=== PATIENT | female | born 1950 | race Hispanic/Latino ===

== ENCOUNTER 2020-03-29 07:40 | Observation (INO) | payer MEDICARE ==
[2020-03-24 09:08] LABS: BASOPHILS % 0.3 % (0.0-1.0); EOSINOPHILS # (AUTO) 0.1 (0.0-0.4); EOSINOPHILS % 0.8 % (0.0-6.0); HEMATOCRIT 36.7 % (34.2-44.1); HEMOGLOBIN 12.3 g/dL (12.0-16.0); LYMPHOCYTES # (AUTO) 2.6 (1.0-3.2); LYMPHOCYTES % 21.7 % (18.0-39.1); MEAN CORPUSCULAR HEMOGLOBIN 29.4 pg (28-32); MEAN CORPUSCULAR HGB CONC 33.5 g/dL (31-35); MEAN CORPUSCULAR VOLUME 87.6 fL (81-99); MONOCYTES # (AUTO) 0.6 (0.2-0.8); NEUTROPHILS # (AUTO) 8.7 (2.1-6.9); PLATELET COUNT 202 x10e3/uL (140-360); RED BLOOD COUNT 4.19 x10e6/uL (3.6-5.1); RED CELL DISTRIBUTION WIDTH 12.5 % (11.7-14.4)
[2020-03-24 09:32] LABS: ANION GAP 11.6 mmol/L (8-16); BLOOD UREA NITROGEN 17 mg/dL (7-26); BUN/CREATININE RATIO 24 (6-25); CALCIUM 9.1 mg/dL (8.4-10.2); CARBON DIOXIDE 29 mmol/L (22-29); CHLORIDE 104 mmol/L (98-107); CREATININE, SERUM 0.71 mg/dL (0.57-1.11); EST GLOMERULAR FILTRATION RATE > 60 ML/MIN (60-); GLUCOSE 141 mg/dL (74-118); POTASSIUM 3.6 mmol/L (3.5-5.1); SODIUM 141 mmol/L (136-145)
[~2020-03-29 07:40] MED LIST: ALBUTEROL INH; AMLODIPINE BESYL5 MG PO; HYDROCHLOROTHIA25 MG PO; INHALER INH; LIPITOR10 MG PO; LISINOPRIL10 MG PO; LOSARTAN POTAS100 MG PO; METFORMIN HCL500 MG PO; METOPROLOL SUCC50 MG PO; MOBIC7.5 MG PO; MONTELUKAST SOD10 MG PO; ROPIVACAINE 246.25 MG, EPINEPHRINE HCL 1:1000 1ML 0.5 MG, CLONIDINE HCL 0.08 MG, KETORO... INJ ONE; Z.0.LISINOPRIL10 MG PO; Z.0.VENTOLIN HFA18 G IH; [UNRECOGNIZED DRUG - OTHER] PO
[2020-03-29] MEDS ORDERED: ROPIVACAINE 246.25 MG, EPINEPHRINE HCL 1:1000 1ML 0.5 MG, CLONIDINE HCL 0.08 MG, KETORO... INJ ONE ×5 (08:00)
[2020-03-29] MEDS ORDERED: SUCRALFATE1 GM PO (08:41)
[2020-03-29] MEDS ORDERED: CEFAZOLIN SOD 1 GM/NS 50ML 100 ML IV ONE (08:50)
[2020-03-29] MEDS ORDERED: CELECOXIB 200 MG CAP ONE (09:01)
[2020-03-29] MEDS ORDERED: DEXAMETHASONE SOD PHOS 10 MG/1 ML VIAL ONE (09:01)
[2020-03-29] MEDS ORDERED: GABAPENTIN 300 MG CAP ONE (09:01)
[2020-03-29] MEDS ORDERED: VANCOMYCIN HCL 500 MG ONE ×2 (09:41→11:07)
[2020-03-29] MEDS ORDERED: SODIUM CHLORIDE 0.9% 500ML 500 ML ONE (09:41)
[2020-03-29] MEDS ORDERED: TRANEXAMIC ACID 1,000 MG/10 ML ML ONE (09:42)
[2020-03-29] MEDS ORDERED: BUPIVACAINE 7.5MG/ML /DEXTROSE 82.5MG/ML 2 ML AMP INJ ONE (10:18)
[2020-03-29] MEDS ORDERED: FENTANYL CITRATE/PF 100MCG/2 ML INJ ONE (11:26)
[2020-03-29] MEDS ORDERED: MIDAZOLAM HCL 2 MG/2 ML VIAL ONE (11:26)
[2020-03-29] MEDS ORDERED: DOCUSATE SODIUM 100 MG CAP PO PRN (11:45)
[2020-03-29] MEDS ORDERED: HYDROCODONE/APAP 5MG-325MG TAB PO PRN (11:45)
[2020-03-29] MEDS ORDERED: DIPHENHYDRAMINE HCL INJ 50 MG/ML VIAL IV PRN (11:45)
[2020-03-29] MEDS ORDERED: ACETAMINOPHEN 650 MG SUPP PR PRN (11:45)
[2020-03-29] MEDS ORDERED: HYDROCODONE/APAP 7.5MG-325MG 1 EA TAB PO PRN (11:45)
[2020-03-29] MEDS ORDERED: ONDANSETRON HCL INJ 2MG/ML 2ML 2 MG/ML VIAL IV PRN (11:45)
[2020-03-29] MEDS ORDERED: ONDANSETRON HCL INJ 2MG/ML 2ML 2 MG/ML VIAL ONE (12:23)
[2020-03-29] MEDS ORDERED: PROPOFOL IV EMULSION 10 MG/ML 20 ML VIAL ONE (12:23)
[2020-03-29] MEDS ORDERED: LIDOCAINE HCL 2% LOCAL INJ 5 ML SDV VIAL INJ ONE (12:23)
[2020-03-29] MEDS ORDERED: ALBUTEROL SULFATE HFA 8GM INHALATION AEROSOL INH ONE (12:23)
[2020-03-29] MEDS: KETOROLAC TROMETHAMINE 30 MG/ML VIAL IV PRN (13:41)
[2020-03-29 16:30] VITALS: BP 125/61
[2020-03-29] MEDS ORDERED: ACETAMINOPHEN 1000 MG/100 ML IV PRN (17:00)
[2020-03-29 17:04] VITALS: BP 135/74
[2020-03-29] MEDS: CEFAZOLIN SOD 1 GM/NS 50ML 50 ML IV SCH (17:59)
[2020-03-29] MEDS: SODIUM CHLORIDE 0.9% 1000ML 1,000 ML IV SCH ×2 (17:59→21:45)
[2020-03-29] MEDS: ASPIRIN 325 MG TAB PO SCH (18:00)
[2020-03-29] MEDS: CELECOXIB 100 MG CAP PO SCH (18:00)
[2020-03-29 18:01] VITALS: BP 135/74
[2020-03-29 20:00] VITALS: BP 142/62
[2020-03-29 20:02] VITALS: BP 135/74
[2020-03-29] MEDS ORDERED: LISINOPRIL 20 MG TAB PO SCH (21:00)
[2020-03-29] MEDS ORDERED: ATORVASTATIN 20 MG TAB PO SCH (21:00)
[2020-03-29] MEDS ORDERED: ZOLPIDEM TARTRATE 5 MG TAB PO PRN (21:00)
[2020-03-30] VITALS: BP 127/60
[2020-03-30] MEDS: CEFAZOLIN SOD 1 GM/NS 50ML 50 ML IV SCH ×2 (01:39→09:22)
[2020-03-30] MEDS: KETOROLAC TROMETHAMINE 30 MG/ML VIAL IV PRN (01:46)
[2020-03-30 04:00] VITALS: BP 142/61
[2020-03-30 05:19] LABS: HEMATOCRIT 31.9 % (34.2-44.1); HEMOGLOBIN 11.1 g/dL (12.0-16.0)
[2020-03-30] MEDS ORDERED: SUCRALFATE 1 GM TAB PO SCH (07:30)
[2020-03-30] MEDS: SODIUM CHLORIDE 0.9% 1000ML 1,000 ML IV SCH (07:45)
[2020-03-30 07:50] VITALS: BP 153/69
[2020-03-30] MEDS ORDERED: METFORMIN HCL 500 MG TAB PO SCH (08:00)
[2020-03-30 08:26] VITALS: BP 153/69
[2020-03-30] MEDS ORDERED: METOPROLOL SUCCINATE 50 MG TAB XL PO SCH (09:00)
[2020-03-30] MEDS ORDERED: AMLODIPINE BESYLATE 5 MG TAB PO SCH (09:00)
[2020-03-30] MEDS ORDERED: HYDROCHLOROTHIAZIDE 25 MG TAB PO SCH (09:00)
[2020-03-30] MEDS ORDERED: MONTELUKAST SODIUM 10 MG TAB PO SCH (09:00)
[2020-03-30] MEDS ORDERED: MELOXICAM 7.5 MG TAB PO SCH (09:00)
[2020-03-30] MEDS: CELECOXIB 100 MG CAP PO SCH (09:18)
[2020-03-30] MEDS: ASPIRIN 325 MG TAB PO SCH (09:18)
[2020-03-30 11:47] VITALS: BP 133/62
[2020-03-30] MEDS ORDERED: ONDANSETRON HCL 4 MG ORAL DISINTEGRATING TAB PO PRN (13:15)
[2020-03-30] MEDS ORDERED: CELECOXIB 200 MG CAP PO SCH (17:00)
== END 2020-03-30 14:02 | disposition home or self-care (01) ==
LOC: OR 07:40 → PACU V 11:34 → MED/SURG 16:30
PROVIDERS: ADMIT Specialist; ATTEND Specialist
DX: M17.0 Bilateral primary osteoarthritis of knee (principal); D64.9 Anemia, unspecified; I10 Essential (primary) hypertension; E78.5 Hyperlipidemia, unspecified; E11.9 Type 2 diabetes mellitus without complications; Z20.828 Contact with and (suspected) exposure to other viral communicable diseases
CPT/HCPCS: 27447; 36415 ×3; 73560; 80048; 82948; 85014; 85018; 85025; 86850 ×2; 86900 ×2; 86920 ×2; 97110; 97116 ×2; 97161; 97530; C1713 ×3; C1776; G0378 ×2; J0171; J0690 ×2; J1100; J1885 ×2; J2001; J2250; J2405 ×2; J2704; J2795; J3010; J3370; J7030; J7040; U0002 ×2